=== PATIENT | male | born 1975 | race Two or more races ===

== ENCOUNTER 2018-03-08 16:55 | Emergency (ER) | payer BC, OTHER ==
--- NOTE | 2018-03-08 18:02 | ED Physician Chart ---
ED Chief Complaint/HPI - Patient Information Date Seen:: 03/08/18 Time Seen:: 17:25 Chief Complaint:: Abdominal Pain History of Present Illness:: onset x 10 hours of intermittent, diffuse Abd. Pain, especially at LLQ with N/V x5; pt denies trauma, H/As, S/T, neck pain, C/P, SOB, A/D/C, fever, chills, or urinary s/s Allergies:: Allergies Allergy/AdvReac Type Severity Reaction Status Date / Time cefazolin Allergy Verified 03/08/18 17:22 cephalexin monohydrate Allergy Verified 03/08/18 17:22 [From Keflex] ketorolac tromethamine Allergy FACIAL Verified 03/08/18 17:22 [From Toradol] SWELLING morphine Allergy HIVES Verified 03/08/18 17:22 Penicillins Allergy SHORTNESS Verified 03/08/18 17:22 OF BREATH Vitals:: Vital Signs - 8 hr 03/08/18 17:27 Temp 97.1 F HR 71 RR 18 BP 142/76 O2 Sat % 97 Historian:: Patient Review:: Nurse's Note Reviewed, Old Chart Reviewed <Manuel Curiel - Last Filed: 03/08/18 18:18> - Patient Information Allergies:: Allergies Allergy/AdvReac Type Severity Reaction Status Date / Time cefazolin Allergy Verified 03/08/18 17:22 cephalexin monohydrate Allergy Verified 03/08/18 17:22 [From Keflex] ketorolac tromethamine Allergy FACIAL Verified 03/08/18 17:22 [From Toradol] SWELLING morphine Allergy HIVES Verified 03/08/18 17:22 Penicillins Allergy SHORTNESS Verified 03/08/18 17:22 OF BREATH Vitals:: Vital Signs - 8 hr 03/08/18 17:27 Temp 97.1 F HR 71 RR 18 BP 142/76 O2 Sat % 97 <Nia Syed - Last Filed: 03/08/18 19:00> ED Review of Systems - Review of Systems General/Constitutional: No fever, No chills, No weight loss, No weakness, No diaphoresis, No edema, No loss of appetite Skin: No skin lesions, No rash, No bruising Head: No headache, No light-headedness Eyes: No loss of vision, No pain, No diplopia ENT: No earache, No nasal drainage, No sore throat, No tinnitus Neck: No neck pain, No swelling, No thyromegaly, No stiffness, No mass noted Cardio Vascular: No chest pain, No palpitations, No PND, No orthopnea, No edema Pulmonary: No SOB, No cough, No sputum, No wheezing GI: Nausea, Vomiting, Diarrhea, Pain, No melena, No hematochezia, No constipation, No hematemesis G/U: No dysuria, No frequency, No hematuria, No nacturia Musculoskeletal: No bone or joint pain, No back pain, No muscle pain Endocrine: No polyuria, No polydipsia Psychiatric: No prior psych history, No depression, No anxiety, No suicidal ideation, No homicidal ideation, No auditory hallucination, No visual hallucination Hematopoietic: No bruising, No lymphadenopathy Allergic/Immuno: No urticaria, No angioedema Neurological: No syncope, No focal symptoms, No weakness, No paresthesia, No headache, No seizure, No dizziness, No confusion, No vertigo <Manuel Curiel - Last Filed: 03/08/18 18:18> ED Past Medical History - Past Medical History Obtainable: Yes Past Medical History: HTN, DM, Dyslipidemia, Other (Diverticulitis) Family History: HTN Social History: Non Smoker, No Alcohol, No Drug Use, Surgical History: Appendectomy, Cholecystectomy Psychiatricy History: None Medication: Reviewed <Manuel Curiel Last Filed: 03/08/18 18:18> Family Medical History - Family Member Mother History Unknown: Yes Ethnicity: Non- Living Status: Hx Family Cancer: Yes (Pancreatic) Hx Family Coronary Artery Disease: No Hx Family Congestive Heart Failure: No Hx Family Hypertension: No Hx Family Stroke: No Hx Family Diabetes: No Hx Family Seizures: No Hx Family Dementia: No Hx Family AIDS: No Hx Family HIV: No Hx Family COPD: No Hx Family Hepatitis: No Hx Family Psychiatric Problems: No Hx Family Tuberculosis: No Maternal Grandmother History Unknown: Yes Ethnicity: Non- Living Status: Still Living Hx Family Congestive Heart Failure: Yes Hx Family Stroke: Yes Hx Family Diabetes: Yes <Manuel Curiel Last Filed: 03/08/18 18:18> ED Physical Exam - Physical Examination General/Constitutional: Awake, Well-developed, well-nourished, Alert, No distress, GCS 15, Non-toxic appearing, Ambulatory Head: Atraumatic Eyes: Lids, conjuctiva normal, PERRL, EOMI Skin: Nl inspection, No rash, No skin lesions, No ecchymosis, Well hydrated, No lymphadenopathy ENMT: External ears, nose nl, TM canals nl, Nasal exam nl, Lips, teeth, gums nl , Oropharynx nl, Tonsils nl Neck: Nontender, Full ROM w/o pain, No JVD, No nuchal rigidity, No bruit, No mass, No stridor Respiratory: Nl effort/Exclusion, Clear to Auscultation, No Wheeze/Rhonchi/Rales Cardio Vascular: RRR, No murmur, gallop, rubs, NL S1 S2, Carotid/Femoral/Distal pulses equal bilaterally GI: No tenderness/rebounding/guarding, No organomegaly, No hernia, Normal BS's, Nondistended, No mass/bruits, No McBurney tenderness Other GI comments:: + LLQ Tenderness; no pulsatile masses : No CVA tenderness Extremities: No tenderness or effusion, Full ROM, normal strength in all extremities, No edema, Normal digits & nails Neuro/Psych: Alert/oriented, DTR's symmetric, Normal sensory exam, Normal motor strength, Judgement/insight normal, Mood normal, Normal gait, No focal deficits Misc: Normal back, No paraspinal tenderness <Manuel Curiel - Last Filed: 03/08/18 18:18> ED Septic Shock - . Is Septic Shock (SBP<90, OR Lactate>4 mmol\L) present?: No - <6hrs of presentation: Vital Signs: Vital Signs - 8 hr 03/08/18 17:27 Temp 97.1 F HR 71 RR 18 BP 142/76 O2 Sat % 97 <Manuel Curiel - Last Filed: 03/08/18 18:18> - <6hrs of presentation: Vital Signs: Vital Signs - 8 hr 03/08/18 17:27 Temp 97.1 F HR 71 RR 18 BP 142/76 O2 Sat % 97 <Nia Syed - Last Filed: 03/08/18 19:00> ED Reassessment (Disposition) - Reassessment Reassessment Condition:: Improved - Diagnosis Diagnosis:: Abdominal Pain; Diverticulitis; N/V/D; Vomiting; AGE; Gastritis <Manuel Curiel - Last Filed: 03/08/18 18:18> - Reassessment Reassessment:: Patient left AMA. - Patient Disposition Discharge/Transfer:: Against Medical Advice <Nia Syed - Last Filed: 03/08/18 19:00>
[2018-03-08] MEDS ORDERED: Sodium Chloride 0.9% 1,000 ML IV ONE (18:03)
[2018-03-08] MEDS ORDERED: Levofloxacin 500mg/100mL 500 MG/100 ML BAG IV ONE ×2 (18:05→18:24)
[2018-03-08 19:01] LABS: % BASOPHILS 0.4 % (0.0-2.0); % EOSINOPHILS 0.5 % (0.0-5.0); % LYMPHOCYTES 42.5 % (20.0-50.0); % MONOCYTES 8.8 % (2.0-10.0); % NEUTROPHILS 47.8 % (40.0-80.0); HEMATOCRIT 44.9 % (41.0-60); HEMOGLOBIN 14.9 gm/dL (12-16); LYMPHOCYTE ABSOLUTE 2.1 Th/cmm (1.5-3.0); MEAN CELL VOLUME 84.8 fl (80-99); MEAN CORPUSCULAR HEMOGLOBIN 28.2 pg (26.0-30.0); MEAN CORPUSCULAR HGB CONC 33.2 pg (28.0-36.0); MEAN PLATELET VOLUME 8.7 fl; MONOCYTE ABSOLUTE 0.4 Th/cmm (0.3-1.0); NEUTROPHILE ABSOLUTE 2.4 Th/cmm (1.8-8.0); PLATELET COUNT 247 Th/cmm (150-400); RED BLOOD COUNT 5.29 Mil/cmm (4.30-5.70); RED CELL DISTRIBUTION WIDTH 12.8 % (11.5-20.0); WHITE BLOOD COUNT 4.9 Th/cmm (4.8-10.8)
[2018-03-09 08:43] LABS: INR 0.96 (0.5-1.4)
[2018-03-09 08:48] LABS: ALB/GLOB RATIO 1.2 (1.0-1.8); ALBUMIN 3.6 gm/dL (4.2-5.5); ALKALINE PHOSPHATASE 55 U/L (34-104); AMYLASE SERUM 42 U/L (29-103); ANION GAP 14.8 (7.0-16.0); BILIRUBIN,TOTAL 0.5 mg/dL (0.3-1.0); BUN - UREA NITROGEN 12 mg/dL (7-25); CALCIUM SERUM 9.4 mg/dL (8.6-10.3); CARBON DIOXIDE 21.6 mEq/L (21.0-31.0); CHLORIDE 101 mEq/L (98-107); CHOLESTEROL 252 mg/dL (<200); CREATININE - SERUM 0.7 mg/dL (0.7-1.3); GFR AFRICAN-AMERICAN > 60.0 ml/min (>90); GFR NON AFRICAN-AMERICAN > 60.0 ml/min; HDL -HIGH DENSITY LIPOPROTEIN 46 mg/dL (23-92); LIPASE 21 U/L (11-82); POTASSIUM SERUM 4.4 mEq/L (3.5-5.1); SGOT 18 U/L (13-39); SGPT/ALT 30 U/L (7-52); SODIUM SERUM 133 mEq/L (136-145); TOTAL PROTEIN,SERUM 6.6 gm/dL (6.0-8.3); TRIGLYCERIDES 290 mg/dL (<150)
[2018-03-09 08:50] LABS: CREATININE KINASE 47 U/L (30-223)
--- NOTE | 2018-03-09 08:51 | Diagnostic Imaging Report ---
CHEST X-RAY: AP view INDICATION: pain COMPARISON: None FINDINGS: There is mild elevation of the right hemidiaphragm. Increased interstitial lung markings are noted greatest at the lung bases. Cardiomegaly is noted. Spinal stimulator device is noted. Degenerative changes of the spine are noted. There appear to be postsurgical changes of the bilateral distal clavicular regions. IMPRESSION: Increased interstitial lung markings, nonspecific. A marginal degree of congestion is less likely but cannot be excluded. Increased bibasal lung markings which may be due to patient's low lung volumes and atelectatic changes. Faint infiltrate is considered less likely. No focal consolidation identified. Cardiomegaly. Spinal stimulator.
[2018-03-09 09:00] LABS: DDIMER QUANT < 100 ng/mL (100-400)
[2018-03-09 09:08] LABS: GLUCOSE 457 mg/dL (70-105)
== END 2018-03-08 18:50 | disposition left against medical advice (07) ==
LOC: ER 16:55
DX: K52.9 Noninfective gastroenteritis and colitis, unspecified (principal); K57.92 Diverticulitis of intestine, part unspecified, without perforation or abscess without bleeding; K29.70 Gastritis, unspecified, without bleeding; I10 Essential (primary) hypertension; E11.9 Type 2 diabetes mellitus without complications; E78.5 Hyperlipidemia, unspecified; Z90.49 Acquired absence of other specified parts of digestive tract; Z90.89 Acquired absence of other organs; Z88.0 Allergy status to penicillin; Z88.1 Allergy status to other antibiotic agents; Z88.6 Allergy status to analgesic agent; Z88.5 Allergy status to narcotic agent
CPT/HCPCS: 99284; 71045; 84484; 83880; 36415; 85379; 85025; 85610; 82150; 82550; 83036; 83690; 80053; 80061; J2405; J1956; Z7502

== ENCOUNTER 2018-03-22 12:28 | Emergency (ER) | payer BC ==
[2018-03-22] MEDS ORDERED: Sodium Chloride 0.9% 1,000 ML IV ONE (12:47)
[2018-03-22 13:02] LABS: % BASOPHILS 0.5 % (0.0-2.0); % EOSINOPHILS 0.5 % (0.0-5.0); % LYMPHOCYTES 35.9 % (20.0-50.0); % MONOCYTES 6.5 % (2.0-10.0); % NEUTROPHILS 56.6 % (40.0-80.0); HEMATOCRIT 47.5 % (41.0-60); HEMOGLOBIN 16.4 gm/dL (12-16); LYMPHOCYTE ABSOLUTE 2.4 Th/cmm (1.5-3.0); MEAN CELL VOLUME 83.8 fl (80-99); MEAN CORPUSCULAR HEMOGLOBIN 28.8 pg (26.0-30.0); MEAN CORPUSCULAR HGB CONC 34.4 pg (28.0-36.0); MEAN PLATELET VOLUME 7.6 fl; MONOCYTE ABSOLUTE 0.4 Th/cmm (0.3-1.0); NEUTROPHILE ABSOLUTE 3.9 Th/cmm (1.8-8.0); PLATELET COUNT 342 Th/cmm (150-400); RED BLOOD COUNT 5.67 Mil/cmm (4.30-5.70); RED CELL DISTRIBUTION WIDTH 12.9 % (11.5-20.0); WHITE BLOOD COUNT 6.7 Th/cmm (4.8-10.8)
--- NOTE | 2018-03-22 13:12 | ED Physician Chart ---
ED Chief Complaint/HPI - Patient Information Date Seen:: 03/22/18 Time Seen:: 12:50 Chief Complaint:: Abdominal Pain History of Present Illness:: onset x 24 hours of intermittent, diffuse, crampy, Abdominal Pain, N/V/D x 3; pt denies recent trauma, LOC, ALOC, AMS, H/As, S/T, neck pain, cough, C/P, SOB, A/C, bleeding, fever, chills, or urinary s/s; pt is eating and urinating well; pt last urinated one hour [employer] Allergies:: Allergies Allergy/AdvReac Type Severity Reaction Status Date / Time cefazolin Allergy Verified 03/08/18 17:22 cephalexin monohydrate Allergy Verified 03/08/18 17:22 [From Keflex] ketorolac tromethamine Allergy FACIAL Verified 03/08/18 17:22 [From Toradol] SWELLING morphine Allergy HIVES Verified 03/08/18 17:22 Penicillins Allergy SHORTNESS Verified 03/08/18 17:22 OF BREATH Vitals:: Vital Signs - 8 hr 03/22/18 12:50 Temp 98.7 F HR 109 RR 15 BP 143/98 O2 Sat % 97 Historian:: Patient Review:: Nurse's Note Reviewed, Old Chart Reviewed ED Review of Systems - Review of Systems General/Constitutional: No fever, No chills, No weight loss, No weakness, No diaphoresis, No edema, No loss of appetite Skin: No skin lesions, No rash, No bruising Head: No headache, No light-headedness Eyes: No loss of vision, No pain, No diplopia ENT: No earache, No nasal drainage, No sore throat, No tinnitus Neck: No neck pain, No swelling, No thyromegaly, No stiffness, No mass noted Cardio Vascular: No chest pain, No palpitations, No PND, No orthopnea, No edema Pulmonary: No SOB, No cough, No sputum, No wheezing GI: Nausea, Vomiting, Diarrhea, Pain, No melena, No hematochezia, No constipation, No hematemesis G/U: No dysuria, No frequency, No hematuria Musculoskeletal: No bone or joint pain, No back pain, No muscle pain Endocrine: No polyuria, No polydipsia Psychiatric: No prior psych history, No depression, No anxiety, No suicidal ideation, No homicidal ideation, No auditory hallucination, No visual hallucination Hematopoietic: No bruising, No lymphadenopathy Allergic/Immuno: No urticaria, No angioedema Neurological: No syncope, No focal symptoms, No weakness, No paresthesia, No headache, No seizure, No dizziness, No confusion, No vertigo ED Past Medical History - Past Medical History Obtainable: Yes Past Medical History: Other (S/P Multiple Trauma Surgeries) Family History: HTN Social History: Non Smoker, No Alcohol, No Drug Use, Single, Employed Surgical History: Appendectomy, other (S/P Multiple Trauma Surgeries) Psychiatricy History: None Medication: Reviewed Family Medical History - Family Member Mother History Unknown: Yes Ethnicity: Non- Living Status: Hx Family Cancer: Yes (Pancreatic) Hx Family Coronary Artery Disease: No Hx Family Congestive Heart Failure: No Hx Family Hypertension: No Hx Family Stroke: No Hx Family Diabetes: No Hx Family Seizures: No Hx Family Dementia: No Hx Family AIDS: No Hx Family HIV: No Hx Family COPD: No Hx Family Hepatitis: No Hx Family Psychiatric Problems: No Hx Family Tuberculosis: No Maternal Grandmother History Unknown: Yes Ethnicity: Non- Living Status: Still Living Hx Family Cancer: No Hx Family Congestive Heart Failure: No Hx Family Stroke: No Hx Family Diabetes: No Hx Family AIDS: No Hx Family HIV: No Hx Family COPD: No Hx Family Psychiatric Problems: No Hx Family Tuberculosis: No ED Physical Exam - Physical Examination General/Constitutional: Awake, Well-developed, well-nourished, Alert, No distress, GCS 15, Non-toxic appearing, Ambulatory Head: Atraumatic Eyes: Lids, conjuctiva normal, PERRL, EOMI Skin: Nl inspection, No rash, No skin lesions, No ecchymosis, Well hydrated, No lymphadenopathy ENMT: External ears, nose nl, TM canals nl, Nasal exam nl, Lips, teeth, gums nl , Oropharynx nl, Tonsils nl Neck: Nontender, Full ROM w/o pain, No JVD, No nuchal rigidity, No bruit, No mass, No stridor Other Neck comments:: supple; no meningeal signs; no cervical tenderness; no bruits Respiratory: Nl effort/Exclusion, Clear to Auscultation, No Wheeze/Rhonchi/Rales Cardio Vascular: RRR, No murmur, gallop, rubs, NL S1 S2, Carotid/Femoral/Distal pulses equal bilaterally GI: No tenderness/rebounding/guarding, No organomegaly, No hernia, Normal BS's, Nondistended, No mass/bruits, No McBurney tenderness, Rectum exam nl Other GI comments:: no pulsatile masses : No CVA tenderness Extremities: No tenderness or effusion, Full ROM, normal strength in all extremities, No edema, Normal digits & nails Neuro/Psych: Alert/oriented, DTR's symmetric, Normal sensory exam, Normal motor strength, Judgement/insight normal, Mood normal, Normal gait, No focal deficits Other Neuro/Psych comments:: no focal signs Misc: Normal back, No paraspinal tenderness ED Labs/Radiology/EKG Results - Lab Results Comments:: Reviewed - Radiology Results Comments:: + GB Distention; otherwise NAD - EKG Interpretations EKG Time:: 13:16 Rate & Rhythm: 101; ST Comments:: IRBBB; non-specific st-t changes ED Septic Shock - . Is Septic Shock (SBP<90, OR Lactate>4 mmol\L) present?: No - <6hrs of presentation: Vital Signs: Vital Signs - 8 hr 03/22/18 12:50 Temp 98.7 F HR 109 RR 15 BP 143/98 O2 Sat % 97 ED Reassessment (Disposition) - Reassessment Reassessment:: pt refused admission and chose to sign out AMA; pt tolerated po fluids well in ER; pt is asymptomatic upon discharge Reassessment Condition:: Improved - Diagnosis Diagnosis:: Dx: Abdominal Pain; N/V/D; AGE; Hyperglycemia; Hyperlipidemia; DM; Hyponatremia ; Pancreatitis; Gall Bladder Distention; Hypoalbuminemia; Gastritis - Aftercare/Follow up Instructions Aftercare/Follow-Up Instructions:: Counseled pt regarding lab results/diagnosis & need follow up, Refer to Discharge Instructions, Counseled pt & family regarding lab results/diagnosis & need follow up - Patient Disposition Discharge/Transfer:: Against Medical Advice Condition at Disposition:: Stable, Improved (X-Rays Instructions; RTER prn if existing s/s reoccur and/or get worse and/or any other new s/s occur; ACIs given for all above Dx; Refer to GI Specialist/Surgeon/Vice President Of Manufacturing LEONARD; F/U with PMD Today or prn; RTER prn if concerned)
[2018-03-22 13:14] LABS: INR 0.97 (0.5-1.4); PROTHROMBIN TIME (TEST) 10.1 SECONDS (9.5-11.5)
[2018-03-22 13:34] LABS: ALBUMIN 3.8 gm/dL (4.2-5.5); ALKALINE PHOSPHATASE 53 U/L (34-104); AMYLASE SERUM 82 U/L (29-103); ANION GAP 13.6 (7.0-16.0); BILIRUBIN,TOTAL 0.6 mg/dL (0.3-1.0); BUN - UREA NITROGEN 12 mg/dL (7-25); CALCIUM SERUM 9.8 mg/dL (8.6-10.3); CARBON DIOXIDE 22.9 mEq/L (21.0-31.0); CHLORIDE 100 mEq/L (98-107); CHOLESTEROL 246 mg/dL (<200); CREATININE - SERUM 0.6 mg/dL (0.7-1.3); CREATININE KINASE 30 U/L (30-223); GFR AFRICAN-AMERICAN > 60.0 ml/min (>90); GFR NON AFRICAN-AMERICAN > 60.0 ml/min; GLUCOSE 220 mg/dL (70-105); HDL -HIGH DENSITY LIPOPROTEIN 54 mg/dL (23-92); LIPASE 166 U/L (11-82); POTASSIUM SERUM 4.5 mEq/L (3.5-5.1); SGOT 11 U/L (13-39); SGPT/ALT 13 U/L (7-52); SODIUM SERUM 132 mEq/L (136-145); TRIGLYCERIDES 97 mg/dL (<150)
[2018-03-22 14:00] LABS: TOTAL PROTEIN,SERUM 7.8 gm/dL (6.0-8.3)
--- NOTE | 2018-03-23 09:22 | Diagnostic Imaging Report ---
CT abdomen and pelvis without intravenous contrast Indication: Abdominal pain Comparison: None, Technique: Axial images were obtained from the lung bases to the bilateral proximal femurs without IV contrast. Coronal reconstructions were made. total DLP: 952, CTDI15.5 FINDINGS: Hypoventilatory and atelectatic changes of the lung bases are noted. Assessment of the solid organs is limited due to lack of IV contrast. There is a sub-CM low-density lesion of this hepatic dome too small to characterize but suggestive of a cyst. No focal splenic, pancreatic, or adrenal lesions. No hydronephrosis or nephrolithiasis. There is mild diastases of the rectus abdominis muscles with small fat-containing umbilical hernia. Mildly distended urinary bladder is noted. Copious stool is seen throughout the colon. Diverticulosis is noted. Underdistended made to distal transverse colon versus less likely mild transverse colonic wall thickening is noted. There is evidence of prior appendectomy. Spinal stimulator device is noted with reservoir along the right anterior abdominal subcutaneous tissues. No free fluid or free air. The disc spaces and postsurgical changes are seen at L4/L5 and L5/S1. There is evidence of previous hardware removal of an 3 through S1. Degenerative changes of lower lumbar spine are noted. IMPRESSION: Copious amount of stool. Underdistention versus less likely mild colonic wall thickening of the mid to distal transverse colon. Inflammatory or infiltrative process cannot be excluded, please correlate clinically Mild diverticulosis. Evidence of prior appendectomy. No radiopaque gallstones. If necessary ultrasound with further clarify. Mildly distended urinary bladder. Postsurgical changes of the lower lumbar and lumbosacral spine with spinal stimulator device also noted.
== END 2018-03-22 14:30 | disposition left against medical advice (07) ==
LOC: ER 12:28
DX: K52.9 Noninfective gastroenteritis and colitis, unspecified (principal); E11.65 Type 2 diabetes mellitus with hyperglycemia; K29.70 Gastritis, unspecified, without bleeding; E78.5 Hyperlipidemia, unspecified; E87.1 Hypo-osmolality and hyponatremia; K85.90 Acute pancreatitis without necrosis or infection, unspecified; E88.09 Other disorders of plasma-protein metabolism, not elsewhere classified; K82.8 Other specified diseases of gallbladder; Z90.49 Acquired absence of other specified parts of digestive tract; Z88.0 Allergy status to penicillin; Z88.1 Allergy status to other antibiotic agents; Z88.5 Allergy status to narcotic agent; Z88.6 Allergy status to analgesic agent; Z88.8 Allergy status to other drugs, medicaments and biological substances
CPT/HCPCS: 36415-UA; 80053-TC; 80061-TC; 82150-TC; 82550-TC; 83690-TC; 83880-TC; 84484-TC; 85025-TC; 85610-TC; 93005; 94760; Z7502